=== PATIENT | male | born 2000 | race Caucasian/White ===

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

== ENCOUNTER 2018-06-25 05:45 | Emergency (ER) | payer MEDICAID ==
[~2018-06-25] VITALS: Ht 172.7 cm; Wt 68.0 kg
[2018-06-25 06:08] VITALS: BP 136/75
[2018-06-25] MEDS ORDERED: LIDOCAINE HCL/PF 1% 10 MG/ML 5ML VIAL IJ ONE (08:45)
[2018-06-25] MEDS ORDERED: BACITRACIN ZINC OINT UDPKT TOP ONE (09:15)
== END 2018-06-25 09:20 | disposition home or self-care (01) ==
LOC: ER 05:45
DX: S61.012A Laceration without foreign body of left thumb without damage to nail, initial encounter (principal); F12.10 Cannabis abuse, uncomplicated; W45.8XXA Other foreign body or object entering through skin, initial encounter; Y93.89 Activity, other specified; Y92.89 Other specified places as the place of occurrence of the external cause; Y99.8 Other external cause status
CPT/HCPCS: 12001; 99283; A4217; J3490; Z7610

== ENCOUNTER 2018-06-28 09:54 | Emergency (ER) | payer MEDICAID ==
[~2018-06-28] VITALS: Ht 172.7 cm; Wt 69.0 kg
[2018-06-28 10:04] VITALS: BP 125/72
== END 2018-06-28 10:39 | disposition home or self-care (01) ==
LOC: ER 09:54
DX: S61.012D Laceration without foreign body of left thumb without damage to nail, subsequent encounter (principal); F12.10 Cannabis abuse, uncomplicated; X58.XXXD Exposure to other specified factors, subsequent encounter
CPT/HCPCS: 99281

== ENCOUNTER 2019-04-17 20:05 | Emergency (ER) | payer MEDICAID ==
[~2019-04-17] VITALS: Ht 172.7 cm; Wt 69.0 kg
[2019-04-18] MEDS ORDERED: ACETAMINOPHEN 325MG TABLET PO ONE (00:30)
[2019-04-18] MEDS ORDERED: IBUPROFEN 600MG TABLET PO ONE (00:45)
[2019-04-18 01:41] VITALS: BP 131/68
== END 2019-04-18 01:45 | disposition home or self-care (01) ==
LOC: ER 20:05
DX: R07.89 Other chest pain (principal); R19.7 Diarrhea, unspecified; R06.02 Shortness of breath; F12.10 Cannabis abuse, uncomplicated; R09.89 Other specified symptoms and signs involving the circulatory and respiratory systems
CPT/HCPCS: 71045; 93005; 99283

== ENCOUNTER 2019-05-21 19:40 | Emergency (ER) | payer SELFPAY ==
[~2019-05-21] VITALS: Ht 172.7 cm; Wt 58.0 kg
[2019-05-21 20:01] VITALS: BP 123/59
== END 2019-05-21 23:37 | disposition left against medical advice (07) ==
LOC: ER 19:40
DX: Z53.21 Procedure and treatment not carried out due to patient leaving prior to being seen by health care provider (principal)